=== PATIENT | female | born 1995 ===

== ENCOUNTER 2018-01-14 01:33 | Inpatient (IN) | payer BC, SELFPAY ==
[2018-01-14] MEDS ORDERED: Sodium Chloride 0.9% 1,000 ML IV SCH (05:30)
[2018-01-14] MEDS ORDERED: Ampicillin/Sulbactam 1.5 GM in Sodium Chloride 0.9% 100 ML IVPB SCH ×2 (06:00→08:00)
[2018-01-14] MEDS ORDERED: Mag-Al 1200 mg/1200 mg/30 ML UDCUP PO PRN (07:50)
[2018-01-14] MEDS ORDERED: Acetaminophen 325 MG Suppository PR PRN (07:50)
[2018-01-14] MEDS ORDERED: CCU Electrolyte Replacement 1 EACH IVPB ONE (07:50)
[2018-01-14] MEDS ORDERED: Bisacodyl 10 MG SUPP PR PRN (07:50)
[2018-01-14] MEDS ORDERED: Norepinephrine 8 MG/0.9% NS 250 ML IVPB PRN (07:50)
[2018-01-14] MEDS ORDERED: Milk Of Magnesia 30 ML UDCUP PO PRN (07:50)
[2018-01-14] MEDS ORDERED: Lacri-Lube Opth Oint 3.5 GM TUBE EA EYE PRN (07:50)
[2018-01-14] MEDS ORDERED: Ondansetron HCl/PF 4 MG/2 ML Vial IVP PRN (07:50)
[2018-01-14] MEDS ORDERED: Lorazepam 2 MG/ML VIAL SLOW IVP PRN (07:52)
[2018-01-14 07:57] VITALS: BMI 23.8
[2018-01-14 08:03] VITALS: BP 127/91
[2018-01-14 08:07] LABS: Actual Bicarbonate (HCO3a) 18.6 mEq/L (22-26); Base Excess (BEa) -4.5 mEq/L (0 (+/-) 2.5); O2 Tension (PaO2) 166.5 mmHg (80.0-100.0); pH, Arterial 7.44 (7.35-7.45)
[2018-01-14 08:08] LABS: Calcium, Ionized 1.1 mmol/L (1.12-1.30); Hematocrit-ABG 31.4 % (34.0-44.0); Hemoglobin (Hb) 11.4 g/dL (11.4-15.4)
[2018-01-14 08:09] LABS: Puncture Site RRA
[2018-01-14] MEDS ORDERED: Potassium Phosphate 15 MMOL in Sodium Chloride 0.9% 250 ML 250 ML IV PRN (08:37)
[2018-01-14] MEDS ORDERED: Potassium Phosphate 9 MMOL in Sodium Chloride 0.9% 100 ML IVPB PRN (08:37)
[2018-01-14] MEDS ORDERED: Magnesium Oxide 400 MG TAB PO PRN ×2 (08:37)
[2018-01-14] MEDS ORDERED: CCU ELECTROLYTE REPLACEMENT PROTOCOL FS PRN (08:37)
[2018-01-14] MEDS ORDERED: Magnesium 2 GM/NS 0.9% 100 ML 2 GM in Premix Bag 1 BAG IVPB PRN (08:37)
[2018-01-14] MEDS ORDERED: Potassium Phosphate 12 MMOL in Sodium Chloride 0.9% 250 ML 250 ML IV PRN (08:37)
[2018-01-14] MEDS ORDERED: Potassium Chloride 20 MEQ TAB PO PRN (08:37)
[2018-01-14] MEDS ORDERED: Potassium Chloride 40 MEQ in Premix Bag 1 BAG IVPB PRN (08:37)
[2018-01-14] MEDS ORDERED: Potassium Chloride 40 MEQ in Sodium Chloride 0.9% 250 ML 250 ML IVPB PRN (08:37)
[2018-01-14 08:47] LABS: Magnesium 1.7 mg/dL (1.7-2.2); Phosphorus 2.5 mg/dL (2.3-4.7)
[2018-01-14] MEDS ORDERED: Heparin 5,000 UNITS/ML VIAL SC SCH (09:00)
[2018-01-14] MEDS ORDERED: Famotidine/PF 20 mg/2ml Vial SLOW IVP SCH ×2 (09:00)
[2018-01-14] MEDS: Enoxaparin Sodium 40 MG/0.4 ML SYRINGE SC SCH (09:02)
[2018-01-14 09:37] LABS: Bilirubin Negative (Negative); Blood, Urine Negative (Negative); Clarity CLEAR (Clear); Glucose, Urine (Dipstick) Negative (Negative); Leukocyte Negative (Negative); Nitrite Negative (Negative); Protein, Urine (Dipstick) Negative (Neg-Trace); Specific Gravity, Urine 1.009 (1.002-1.036); Urobilinogen 0.2 mg/dL (0.2-1.0)
[2018-01-14 09:39] LABS: Pregnancy Test - Urine (BHCG) Negative (Negative); Pregu Control Background? CLEAR/WHITE (CLR/WHITE); Pregu Control Bar Appear? YES (CONTROL BAR); Specific Gravity 1.009 (1.002-1.036)
[2018-01-14 09:47] LABS: Amphetamine Not Detected (NotDetected); Barbiturates Screen Not Detected (NotDetected); Benzodiazepine Screen Not Detected (NotDetected); Cocaine Metabolite Screen Not Detected (NotDetected); Medtox Control Line Valid? VALID (VALID); Medtox Reader # READER 1; Methadone Not Detected (NotDetected); Methamphetamine Not Detected (NotDetected); Opiate Screen Not Detected (NotDetected); Oxycodone Screen Not Detected (NotDetected); Phencyclidine (PCP) Not Detected (NotDetected); THC/Cannabinoid Screen Not Detected (NotDetected); Tricyclic Screen Not Detected (NotDetected)
--- NOTE | 2018-01-14 10:23 | CON ---
DATE OF CONSULTATION: 01/14/2018 REASON FOR CONSULTATION: Ventilator management. HISTORY OF PRESENT ILLNESS: The patient is a 22-year-old female who was drinking heavily last night. She was ingesting rum. She came in with an alcohol level over 300. She apparently vomited. She w as intubated for airway protection. She is currently on mechanical ventilation this morning, awake a nd following commands. PAST MEDICAL HISTORY: Unremarkable. PAST SURGICAL HISTORY: Not known. ALLERGIES: None. MEDICATIONS PRIOR TO ADMISSION: None. REVIEW OF SYSTEMS: Otherwise negative. PHYSICAL EXAMINATION: VITAL SIGNS: Temperature 98.2, pulse 111, blood pressure 114/77, O2 sat 100%. GENERAL: She is awake and alert, follows commands. HEENT: Unremarkable. NECK: No JVD. LUNGS: Clear. CARDIAC: S1, S2 regular. ABDOMEN: Soft. EXTREMITIES: No clubbing, cyanosis, or edema. LABORATORY AND X-RAY FINDINGS: A pH of 7.41, pCO2 of 34, pO2 of 278 on SIMV rate of 14, total volume of 450, PEEP 5, pressure support 10, FiO2 of 50%. Sodium 138, potassium 2.9, chloride 104, CO2 of 2 3, BUN 7, creatinine 0.7, glucose 129. White blood cell count 9.5, hematocrit 39.9, platelet count 3 50. Chest x-ray shows no mass, effusion or infiltrate. ASSESSMENT: 1. Alcohol intoxication. 2. Vomiting with possible aspiration, although not indicative of chest x-ray. PLAN: 1. Extubate and observe. 2. Continue IV hydration. 3. She is continuing antibiotics for the time being, but I would not hesitate to stop those or switc h to oral antibiotics. Hopefully, she can go home later this afternoon.
[2018-01-14] MEDS: 1/2 NS w/KCL 20 mEq 1,000 ML IV SCH ×2 (10:30→20:57)
[2018-01-14] MEDS: Ampicillin/Sulbactam 1.5 GM in Sodium Chloride 0.9% 100 ML IVPB SCH ×3 (11:43→23:25)
--- NOTE | 2018-01-14 11:58 | HP ---
DATE OF ADMISSION: 01/14/2018 CHIEF COMPLAINT: Respiratory failure, alcoholic intoxication, unresponsiveness. HISTORY OF PRESENT ILLNESS: Ms. Leary is a 22-year-old female without any significant past medical his tory who was brought in via EMS to emergency room yesterday for above-mentioned complaint. History i s mainly obtained by the record review as the patient is currently intubated and not able to provide much of the history. No family members available in the room. According to the history, Ms. Leary has been drinking heavily yesterday while she was partying. She reilly d several pours of rum and rum punch and "was fine" until she was not fine. According to the patient 's friend who was in the room, she passed out, but she woke up and then vomited. After that, she pas sed out again and shortly became unresponsive and stopped breathing. EMS was called and she was brou ght to the emergency room. Upon presentation, she was intubated in the field. She was saturating 100% on ventilator. Her blood pressure was 134/110 with a pulse of 111. Her general examination includes normal CBC. Her serum chemistries show, however, a potassium of 2.9 and lactic acid elevated at 2.6. Her plasma alcohol level was elevated to 322. Salicylate and acet aminophen levels were unremarkable. She was given IV fluids and sedation and is now being admitted t o Critical Care Unit for further evaluation and care. There is also the question of possible aspiration as the patient vomited while unresponsive, so she h as been started on empiric IV antibiotics. PAST MEDICAL HISTORY: None according to the friend in the room. PAST SURGICAL HISTORY: None. ALLERGIES: None. MEDICATION PRIOR TO ADMISSION: None. REVIEW OF SYSTEM: Cannot be obtained as the patient is intubated at this time. LABORATORY DATA: CBC is unremarkable. ABG, pH of 7.41, pCO2 34.3, pO2 278. Serum chemistries show potassium of 2.9, blood sugar 129, lactic acid 2.6 with repeat lactic acid of 3.1 and plasma alcohol 322. Chest x-ray does not show any evidence of infiltrate or pneumonitis by my review. Endotracheal tube in position. Magnesium and phosphorus within normal limits. Cardiac enzymes unremarkable. PHYSICAL EXAMINATION: VITAL SIGNS: Most recent vital signs include temperature 98.6, pulse of 122, respirations 16, satura ting 96% on room air as she has been extubated in the interim. Blood pressure 133/84. GENERAL: At the time of my examination, the patient was still intubated. She was waking up. She wa s able to nod with questions, but would fall back asleep within a few seconds. She had some jerky mo vements of her whole body. Appears well groomed and well nourished. No acute distress. She is able to follow simple commands. HEENT: Mucous membrane moist and pink. No oropharyngeal exudate or edema. Endotracheal tube in peña ce. NECK: Supple without any lymphadenopathy, JVD or bruit. CHEST: Clear to auscultation without any wheezing, rales or rhonchi. CARDIOVASCULAR: Rhythm is regular with some tachycardia. ABDOMEN: Soft, nontender, nondistended. EXTREMITIES: Free of any cyanosis, clubbing or edema. NEUROLOGIC: She is able to move both of her legs. Her upper extremities are in restraints. Neurolo gical examination is limited because of the endotracheal intubation and somnolence. PSYCHIATRIC: Cannot be assessed. IMPRESSION AND PLAN: 1. Acute respiratory failure due to acute alcoholic intoxication. The patient has been extubated by Dr. Carl from the Critical Care in the interim. We appreciate his help. She is currently stable and was saturating well on room air. She has not required any sedation. Continue supportive care w ith IV fluids. 2. Possible aspiration pneumonia. IV antibiotics for now. Change to oral if the patient does not e xhibit any signs and symptoms of pneumonia. 3. Elevated lactic acid, most likely secondary to tissue hypoxia from unresponsiveness and apneas ep isode after alcoholic intoxication. Doubt that she has infection. Urinalysis has been checked and s he does not have any evidence to suggest a UTI either. 4. Acute alcoholic intoxication. ASE protocol and p.r.n. Ativan has been ordered. The patient's alix jones is aware that she is admitted here in the hospital. They live in [place] and the patient's frie netta who is also her high school friend is in the room and has been updating the family at this time. 5. Add deep venous thrombosis and gastrointestinal prophylaxis and encourage early ambulation and or al intake. DISPOSITION: Ms. Leary is currently being admitted to Critical Care Unit as she was intubated after reilly ving an apneic unresponsive episode after acute alcoholic intoxication. She is clinically better and hopefully will be discharged sooner than later. Further management will depend upon her clinical co urse.
[2018-01-14 15:47] LABS: Potassium 3.8 mmol/L (3.5-5.1)
[2018-01-14] MEDS ORDERED: Acetaminophen 325 MG TAB PO PRN (19:52)
[2018-01-14] MEDS: Famotidine 20 MG TAB PO SCH (20:19)
[2018-01-14] MEDS: Sodium Chloride 0.9% 1,000 ML IV SCH (21:02)
[2018-01-15 04:56] LABS: ALT (SGPT) 14 U/L (8-55); AST (SGOT) 23 U/L (5-34); Albumin 3.6 g/dL (3.5-5.0); Alkaline Phosphatase 63 U/L (40-150); Anion Gap 9 mmol/L (10-20); BUN (Urea Nitrogen) 5 mg/dL (7.0-18.7); Bilirubin, Total 0.7 mg/dL (0.2-1.2); Calc. Creatinine Clearance 146 mL/min (70-130); Calcium 8.7 mg/dL (7.8-10.44); Carbon Dioxide 25 mmol/L (22-29); Chloride 109 mmol/L (98-107); Estimated GFR-MDRD Greater than 90; Glucose 87 mg/dL (70-105); Potassium 3.5 mmol/L (3.5-5.1); Protein, Total 5.6 g/dL (6.0-8.3); Sodium 139 mmol/L (136-145)
[2018-01-15 05:28] LABS: Band 1 % (5-11); Eosinophils 1 % (0-10); Hemoglobin 11.1 g/dL (12.0-16.0); Lymphocytes 42 % (28-48); MDiff Complete? YES; Mean Corpuscular HGB CONC 33.6 g/dL (32.0-36.0); Mean Corpuscular Hemoglobin 29.5 pg (25.0-35.0); Mean Corpuscular Volume 87.6 fl (77.0-87.0); Mean Platelet Volume 7.5 fL (7.4-10.4); Metamyelocyte 1 % (0-0); Monocytes 5 % (0-4); Neutrophil 48 % (31-61); PLT Morphology Comment Appears Adequate; Platelet Count 205 thou/uL (130-400); RBC Distribution Width 12.1 % (11.5-14.5); RBC Morphology Normal; Reactive Lymphocytes 2 % (0-10); Red Blood Cell (RBC) Count 3.78 mill/uL (4.00-5.20); White Blood Cell (WBC) Count 6.6 thou/uL (4.8-10.8)
[2018-01-15] MEDS: Ampicillin/Sulbactam 1.5 GM in Sodium Chloride 0.9% 100 ML IVPB SCH (06:14)
[2018-01-15] MEDS: Famotidine 20 MG TAB PO SCH (07:51)
[2018-01-15] MEDS: Enoxaparin Sodium 40 MG/0.4 ML SYRINGE SC SCH (07:52)
--- NOTE | 2018-01-15 07:53 | PRG ---
DATE OF SERVICE: 01/15/2018 SUBJECTIVE: The patient is awake, alert, doing well, has no complaints. OBJECTIVE: VITAL SIGNS: On exam, temperature is 98.4, pulse 94, O2 saturation 100%, respiratory rate 18, blood pressure 121/82. HEENT: Unremarkable. NECK: No JVD. LUNGS: Clear. CARDIAC: S1 and S2, regular. ABDOMEN: Soft. EXTREMITIES: No edema. LABORATORY DATA: White blood cell count 6.6, hematocrit 33, platelet count 205. Sodium 139, potassi um 3.5, chloride 105, CO2 of 25, BUN 5, creatinine 0.6, glucose 87. ASSESSMENT: 1. Status post endotracheal intubation for excessive alcohol level. 2. Question of aspiration. PLAN: The patient can be discharged home. If aspiration coverage is felt necessary, then I would no t treat with Augmentin any longer than 5 days. She has been cautioned to watch her alcohol intake. No further recommendations. Pulmonary will sign off the case.
[2018-01-15] MEDS: Sodium Chloride 0.9% 1,000 ML IV SCH (11:29)
[2018-01-15 11:53] VITALS: TEMP 98.2
--- NOTE | 2018-01-15 13:09 | RAD ---
CHEST ONE VIEW: HISTORY: Emergency exam. COMPARISON: None. FINDINGS: The patient is intubated, with the endotracheal tube tip craniad to the von approximately 2.1 cm. The enteric tube tip is in the gastric body. No pneumothorax. No effusion. There appears to be a piece of jewelry over the right clavicle. IMPRESSION: 1. No acute intrathoracic abnormality. 2. Lines and tubes as above. POS: [facility]
--- NOTE | 2018-01-15 14:07 | DIS ---
DATE OF ADMISSION: 01/14/2018 DATE OF DISCHARGE: 01/15/2018 CONDITION AT THE TIME OF DISCHARGE: Stable and improved. DISCHARGE DIAGNOSES: 1. Acute alcoholic intoxication. 2. Acute respiratory failure secondary to acute alcoholic intoxication. 3. Possible aspiration pneumonia. PRIMARY CARE PHYSICIAN: [facility] [place]. DISCHARGE MEDICATIONS: Augmentin 875/125 one tablet p.o. daily. CONSULTATIONS: Dr. Lamont Carl from Pulmonary Critical Care Medicine. PROCEDURE: A chest x-ray, which is actually unremarkable. HISTORY OF PRESENT ILLNESS: Ms. Leary is a 22-year-old white female without any significant past medic al history, who presented via EMS, intubated to the ER. Apparently, she has had too much to drink an d passed out and stopped breathing. Friends called the EMS and she got intubated in the field. Upon presentation, her alcohol level was over 300. She has vomited on herself while unconscious, but the re was some question of aspiration and she was started empirically on IV antibiotics. Please see adm ission history and physical for further details. HOSPITAL COURSE: The patient was admitted in the Critical Care Unit and was seen by the critical car e physician, Dr. Carl. She actually was awake and was extubated shortly after her admission. She did very well after that. She was off of the oxygen, walking in the hallways, eating a regular diet . She was monitored overnight and was discharged earlier this morning. She will continue the oral a ntibiotic to finish the course, but most likely she does not have aspiration pneumonia. I have called her mother and discussed the care over the phone. She was seen and examined prior to discharge. The patient is sitting up in bed and her friend is at bedside. No acute distress noted. She is awake, alert, and oriented. PHYSICAL EXAMINATION: VITAL SIGNS: Temperature 98.2, pulse of 84, respirations 18, saturating 100% on room air, blood pres sure 138/96. CHEST: Clear to auscultation bilaterally. HEART: Rate and rhythm is regular. LABORATORY DATA: CBC this morning shows hemoglobin of 11.1, otherwise unremarkable. Serum chemistry shows chloride 109, otherwise unremarkable. Her potassium upon presentation was 2.9, which is impro roberto to 3.5 this morning. Urinalysis is unremarkable. Urine test is negative. Urine drug screen is negative except for the alcohol level as above. DISCHARGE INSTRUCTIONS: She is instructed to follow up with her [facility] physician as needed. Otherwi se, she is being discharged in a stable hemodynamic condition.
--- NOTE | 2018-01-15 15:53 | CT ---
PRELIMINARY REPORT/[facility]/EMERGENCY AFTER HOURS PROCEDURE: EXAM: CT Head Without Intravenous Contrast EXAM DATE/TIME: Exam ordered 01/14/2018 2:11 AM CLINICAL HISTORY: 84 years old, female; Signs and symptoms; Altered mental status/memory loss; Patient HX: F20 presents to ed unresponsive pt due to ETOH intoxication. Pt friend was with her the entire night, and denies any trauma, or drug use. Pt had taken several pulls of rum, and rum punch. "was fine until she wasn't ". Pt; 's friend states that she passed out, came to and threw up, then passed out again and has been unresponsive since. ; Additional info: *pt is 22 years old. Error at registration TECHNIQUE: Axial computed tomography images of the head/brain without intravenous contrast. COMPARISON: No relevant prior studies available. FINDINGS: Brain: Unremarkable. No hemorrhage. No significant white matter disease. No edema. Ventricles: Unremarkable. No ventriculomegaly. Bones/joints: Unremarkable. No acute fracture. Soft tissues: Unremarkable. Sinuses: Unremarkable as visualized. No acute sinusitis. Mastoid air cells: Unremarkable as visualized. No mastoid effusion. IMPRESSION: Normal head/brain CT. Thank you for allowing us to participate in the care of your patient. Dictated and Authenticated by: Tobias Zhang MD 01/14/2018 2:40 AM Central Time ([place] & [place]) FINAL REPORT NONCONTRAST HEAD CT: Date: 01/14/18 HISTORY: Altered mental status. Unresponsive patient. COMPARISON: None. TECHNIQUE: Noncontrast head CT is performed from skull base to skull vertex. FINDINGS: This report is in agreement with the preliminary report by [facility]. No acute intracranial process.
== END 2018-01-15 11:55 | disposition home or self-care (01) | DRG 208 ==
LOC: EDBD 01:33 → ERS 01:33 → CCU 07:27
PROVIDERS: ADMIT Internal Medicine; ATTEND Internal Medicine
PROC: 5A1935Z Respiratory Ventilation, Less than 24 Consecutive Hours (ICD-10-PCS; principal; 2018-01-14)
DX: J96.00 Acute respiratory failure, unspecified whether with hypoxia or hypercapnia (principal); F10.129 Alcohol abuse with intoxication, unspecified; Y90.8 Blood alcohol level of 240 mg/100 ml or more
CPT/HCPCS: 31500; 36415; 51702; 70470; 71045; 80053; 80306; 81003; 81025; 82805; 83735; 84100; 84132; 85007; 85027; 94002; 96365; 96366; 96375; J0295; J1650; J7050; S0028